=== PATIENT | female | born 1960 | race Caucasian/White ===

== ENCOUNTER → 2016-10-28 | Outpatient (REF) | payer OTHER ==
[2016-10-28 15:49] LABS: BASO % 0.4 % (0.0-1.0); EOS # 0.1 K/mm3 (0.0-0.50); EOS % 1.5 % (0.0-3.0); LARGE UNSTAINED CELL # 0.1 K/mm3 (0.0-0.4); LYMPH # 2.4 K/mm3 (1.5-4.5); LYMPH % 34.2 % (24.0-44.0); MEAN CORPUSCULAR HEMOGLOBIN 29.1 pg (27.0-33.0); MEAN CORPUSCULAR HGB CONC 33.9 g/dl (32.0-36.5); MEAN CORPUSCULAR VOLUME 85.7 fl (80.0-96.0); MONO # 0.4 K/mm3 (0.0-0.8); NEUTROPHILS # 3.7 K/mm3 (1.8-7.7); NEUTROPHILS % 55.8 % (36.0-66.0); PLATELET COUNT, AUTOMATED 194 k/mm3 (150-450); RED CELL DISTRIBUTION WIDTH 12.5 % (11.5-14.5); WHITE BLOOD COUNT 6.7 K/mm3 (4.0-10.0)
[2016-10-28 17:06] LABS: ERYTHROCYTE SEDIMENTATION RATE 6 mm/hr (0-30)
[2016-10-30 10:12] LABS: SJOGREN'S ANTI SS-A <0.2 AI (0.0-0.9); SJOGREN'S ANTI SS-B <0.2 AI (0.0-0.9)
== END ==
LOC: M SFHCPLAZ 13:37
PROVIDERS: ATTEND Dermatology
DX: L56.8 Other specified acute skin changes due to ultraviolet radiation (principal)

== ENCOUNTER → 2018-09-13 | Outpatient (REF) | payer OTHER | LOC: M LAB REF 12:18 | PROVIDERS: ATTEND Physician Assistant Medical | DX: J02.9 Acute pharyngitis, unspecified (principal) ==

== ENCOUNTER 2018-10-16 08:14 | Emergency (ER) | payer OTHER ==
[~2018-10-16] VITALS: Ht 162.6 cm; Wt 79.5 kg
[2018-10-16] MEDS ORDERED: FEMR0.1M3 (08:22)
[2018-10-16] MEDS ORDERED: ONDA4TAB6 PO (09:16)
--- NOTE | 2018-10-16 09:22 | REP ---
CT brain without contrast: History: Head injury. Persistent nausea. CT findings: Digital preliminary work order detailer radiograph is unremarkable. Bone window settings demonstrate an intact bony calvarium. Visualized paranasal sinuses are clear. No intraorbital abnormality is seen. There is mild vascular calcification. On soft-tissue window settings, the lateral, third, fourth ventricles are normal in size and position. Thapa-white differentiation pattern is normal above and below the tentorium. There is no evidence of intracranial hemorrhage. No mass, infarct, extra-axial fluid collection or midline shift is seen. Impression: Minimal vascular calcification. Otherwise negative noncontrast head CT. Electronically Signed by Randell Davis MD 10/16/2018 07:13 P
[2018-10-16 09:30] VITALS: BP 128/69
== END 2018-10-16 09:31 | disposition home or self-care (01) ==
LOC: M ED 08:14
DX: S06.0X0A Concussion without loss of consciousness, initial encounter (principal); S00.03XA Contusion of scalp, initial encounter; W22.8XXA Striking against or struck by other objects, initial encounter; Y92.018 Other place in single-family (private) house as the place of occurrence of the external cause; K21.9 Gastro-esophageal reflux disease without esophagitis; Z79.899 Other long term (current) drug therapy

== ENCOUNTER → 2019-01-03 | Outpatient (REF) | payer OTHER ==
[~2019-01-03] MED LIST: FEMR0.1M3; ONDA4TAB6 PO
== END ==
LOC: M LAB REF 19:25
PROVIDERS: ATTEND Physician Assistant Medical
DX: J02.9 Acute pharyngitis, unspecified (principal)

== ENCOUNTER → 2019-06-05 | Outpatient (RCR) | payer OTHER | LOC: M PT 05-29 09:31 | PROVIDERS: ATTEND Orthopaedic Surgery Sports Medicine | DX: M25.511 Pain in right shoulder (principal) ==

== ENCOUNTER 2019-07-04 07:43 | Outpatient (RCR) | payer OTHER | END 2019-07-06 | LOC: M PT 07:43 | PROVIDERS: ATTEND Orthopaedic Surgery Sports Medicine | DX: M25.511 Pain in right shoulder (principal) ==

== ENCOUNTER 2019-08-01 07:45 | Outpatient (RCR) | payer OTHER | END 2019-08-04 | LOC: M PT 07:45 | PROVIDERS: ATTEND Orthopaedic Surgery Sports Medicine | DX: M25.511 Pain in right shoulder (principal); Z47.89 Encounter for other orthopedic aftercare ==

== ENCOUNTER 2019-08-15 07:30 | Outpatient (RCR) | payer OTHER | END 2019-09-04 | LOC: M PT 07:30 | PROVIDERS: ATTEND Orthopaedic Surgery Sports Medicine | DX: Z47.89 Encounter for other orthopedic aftercare (principal); M25.511 Pain in right shoulder ==

== ENCOUNTER → 2020-05-28 | Outpatient (CLI) | payer SELFPAY | LOC: M LABSMTC 11:55 | PROVIDERS: ATTEND Pediatrics | DX: Z11.59 Encounter for screening for other viral diseases (principal) ==

== ENCOUNTER → 2021-01-29 | Outpatient (CLI) | payer OTHER | LOC: M PLALAB 13:04 | PROVIDERS: ATTEND Psychiatry & Neurology Neurology | DX: R51.9 Headache, unspecified (principal) ==

== ENCOUNTER → 2021-06-04 | Outpatient (REF) | LOC: M LABSMTC 12:51 | PROVIDERS: ATTEND Pediatrics | DX: Z11.52 Encounter for screening for COVID-19 (principal) ==

== ENCOUNTER → 2022-05-05 | Outpatient (REF) | payer OTHER ==
[2022-05-05 16:07] LABS: BILIRUBIN,TOTAL 0.8 MG/DL (0.3-1.2); CALCIUM LEVEL 9.2 MG/DL (8.3-10.6); CHOLESTEROL RISK RATIO 2.55 (<5); CREATININE FOR GFR 1.01 MG/DL (0.55-1.30); GLOMERULAR FILTRATION RATE 59.5 (>45); HDL CHOLESTEROL 54.9 MG/DL (>40); LDL CHOLESTEROL 55.1 MG/DL (<100); POTASSIUM SERUM 4.2 MMOL/L (3.5-5.1); TOTAL PROTEIN 7.1 G/DL (5.7-8.2)
== END ==
LOC: M LABDRWAD 12:58
PROVIDERS: ATTEND Nurse Practitioner Family
DX: E78.5 Hyperlipidemia, unspecified (principal)

== ENCOUNTER 2022-10-29 09:11 | Outpatient (RCR) | payer OTHER | END 2022-11-03 | LOC: M PT 09:11 | DX: M25.512 Pain in left shoulder (principal) ==

== ENCOUNTER 2022-11-30 07:45 | Outpatient (RCR) | payer OTHER | END 2022-12-03 | LOC: M PT 07:45 | PROVIDERS: ATTEND Orthopaedic Surgery Sports Medicine | DX: M25.512 Pain in left shoulder (principal) ==

== ENCOUNTER 2022-12-31 07:45 | Outpatient (RCR) | payer OTHER | END 2023-01-03 | LOC: M PT 07:45 | PROVIDERS: ATTEND Orthopaedic Surgery Sports Medicine | DX: M25.512 Pain in left shoulder (principal) ==

== ENCOUNTER → 2025-03-11 | Outpatient (CLI) | payer OTHER ==
[~2025-03-11] MED LIST changes: +ONDA-282 PO; -ONDA4TAB6 PO
== END ==
LOC: M WUC 09:02
PROVIDERS: ATTEND Physician Assistant
DX: M79.672 Pain in left foot (principal)